=== PATIENT | female | born 1940 | race Caucasian/White ===

== ENCOUNTER → 2016-09-29 | Outpatient (CLI) | payer MEDICARE, OTHER ==
[2016-09-29 13:59] LABS: ABSOLUTE BASOPHILS # (AUTO) 0.1 10^3/uL (0.0-0.2); ABSOLUTE EOSINOPHILS # (AUTO) 0.1 10^3/uL (0.0-0.6); ABSOLUTE LYMPHOCYTES (AUTO) 1.7 10^3/uL (0.5-4.7); ABSOLUTE MONOCYTES (AUTO) 0.7 10^3/uL (0.1-1.4); ABSOLUTE NEUT (AUTO) 4.5 10^3/uL (1.7-8.2); BASOPHILS % (AUTO) 0.8 % (0-2); EOSINOPHILS % (AUTO) 1.6 % (0-6); HEMOGLOBIN 15.3 g/dL (12.0-15.5); HGB HCT DIFFERENCE -0.1; LYMPHOCYTES % (AUTO) 24.1 % (13-45); MEAN CORPUSCULAR HEMOGLOBIN 30.9 pg (27.0-33.4); MEAN CORPUSCULAR HGB CONC 33.3 g/dL (32.0-36.0); MEAN CORPUSCULAR VOLUME 93 fl (80-97); MONOCYTES % (AUTO) 9.3 % (3-13); RED BLOOD COUNT 4.95 10^6/uL (3.72-5.28); RED CELL DISTRIBUTION WIDTH 14.4 % (11.5-14.0); SEGMENTED NEUTROPHILS % (AUTO) 64.2 % (42-78); WHITE BLOOD COUNT 7.1 10^3/uL (4.0-10.5)
== END ==
LOC: OD 12:19
PROVIDERS: ATTEND Nurse Practitioner
DX: J18.9 Pneumonia, unspecified organism (principal); J06.9 Acute upper respiratory infection, unspecified
CPT/HCPCS: 36415; 71020; 85025

== ENCOUNTER → 2016-12-23 | Outpatient (CLI) | payer MEDICARE, OTHER ==
[2016-12-23 09:00] LABS: HEMATOCRIT 44.9 % (36.0-47.0); HEMOGLOBIN 15.4 g/dL (12.0-15.5); HGB HCT DIFFERENCE 1.3; MEAN CORPUSCULAR HEMOGLOBIN 31.7 pg (27.0-33.4); MEAN CORPUSCULAR HGB CONC 34.2 g/dL (32.0-36.0); MEAN CORPUSCULAR VOLUME 93 fl (80-97); RED BLOOD COUNT 4.85 10^6/uL (3.72-5.28); RED CELL DISTRIBUTION WIDTH 14.9 % (11.5-14.0); WHITE BLOOD COUNT 7.6 10^3/uL (4.0-10.5)
[2016-12-23 09:25] LABS: ALANINE AMINOTRANSFERASE 29 U/L (9-52); ALKALINE PHOSPHATASE 129 U/L (38-126); ANION GAP 6 (5-19); ASPARTATE AMINO TRANSFERASE 22 U/L (14-36); BILIRUBIN,DIRECT 0.3 mg/dL (0.0-0.4); BILIRUBIN,TOTAL 0.8 mg/dL (0.2-1.3); BLOOD UREA NITROGEN 15 mg/dL (7-20); CALCIUM 9.7 mg/dL (8.4-10.2); CARBON DIOXIDE 32 mmol/L (22-30); CHLORIDE 106 mmol/L (98-107); CHOLESTEROL 146.45 mg/dL (0-200); CREATININE RESULT 0.89 mg/dL (0.52-1.25); Direct HDL 56 mg/dL (>40); GLUCOSE 97 mg/dL (75-110); POTASSIUM 5.1 mmol/L (3.6-5.0); SODIUM 144.2 mmol/L (137-145); TOTAL PROTEIN 7.2 g/dL (6.3-8.2); TRIGLYCERIDES 97 mg/dL (<150)
[2016-12-23 09:36] LABS: DIRECT LDL 65 mg/dL (<100)
== END ==
LOC: OD 07:39
PROVIDERS: ATTEND Nurse Practitioner
DX: Z79.899 Other long term (current) drug therapy (principal)
CPT/HCPCS: 36415; 80053; 80061; 83036; 84443; 85027

== ENCOUNTER 2017-05-09 19:50 | Inpatient (IN) | payer MEDICARE, OTHER ==
[2017-05-09] MEDS ORDERED: MAG HYDROX/AL HYDROX/SIMETH SUSP 30 ML UDCUP PO ONE (20:22)
[2017-05-09] MEDS ORDERED: LIDOCAINE 2% VISCOUS SOLN 20 ML UDCUP PO ONE (20:23)
--- NOTE | 2017-05-09 20:23 | ER Document Report ---
ED Cardiac - General Chief Complaint: Chest Pain Stated Complaint: CHEST PAIN Time Seen by Provider: 05/09/17 20:16 TRAVEL OUTSIDE OF THE [place] IN LAST 30 DAYS: No - HPI Patient complains to provider of: Chest pain - pt. has h/o GERD but had episode of CP while driving earlier today -- thought it was GERD but when she got home, she took a show but pain did not resolve. Relative called EMS - pt. given ASA and SL nitro with improvement of symptoms - Related Data Allergies/Adverse Reactions: fluticasone propionate [From Flonase] Allergy (Severe, Verified 02/07/14 13:05) Anaphylaxis prednisone [Prednisone] Allergy (Severe, Verified 10/21/13 20:54) Generalized edema Past Medical History - General Information source: Patient, Relative - Social History Smoking Status: Never Smoker Cigarette use (# per day): No Smoking Education Provided: No Family History: Reviewed & Not Pertinent - Past Medical History Cardiac Medical History: Reports: Hx Coronary Artery Disease, Hx Hypercholesterolemia, Hx Hypertension - medicated Denies: Hx Heart Attack Pulmonary Medical History: Reports: Hx Pneumonia Denies: Hx Asthma, Hx Bronchitis, Hx COPD, Hx Tuberculosis Neurological Medical History: Reports: Hx Migraine. Denies: Hx Cerebrovascular Accident, Hx Seizures GI Medical History: Reports: Hx Gastroesophageal Reflux Disease. Denies: Hx Hepatitis, Hx Hiatal Hernia, Hx Ulcer Musculoskeltal Medical History: Reports Hx Arthritis Infectious Medical History: Denies: Hx Hepatitis Past Surgical History: Reports: Hx Abdominal Surgery, Hx Cardiac Surgery - Cath , Hx Cholecystectomy, Hx Hysterectomy, Hx Orthopedic Surgery - left foot. Denies: Hx Mastectomy, Hx Open Heart Surgery, Hx Pacemaker - Immunizations Hx Diphtheria, Pertussis, Tetanus Vaccination: No Hx Pneumococcal Vaccination: 06/06/11 Review of Systems - Review of Systems Constitutional: No symptoms reported Cardiovascular: See HPI, Chest pain Respiratory: No symptoms reported Gastrointestinal: No symptoms reported -: Yes All other systems reviewed and negative Physical Exam - Vital signs Vitals: Pulse Ox 98 05/09/17 20:00 - General General appearance: Appears well In distress: None - Respiratory Respiratory status: No respiratory distress Chest status: Nontender Breath sounds: Normal - Cardiovascular Rhythm: Tachycardia Heart sounds: Normal auscultation - Abdominal Inspection: Normal Distension: No distension - Back Back: Normal - Extremities General upper extremity: Normal inspection General lower extremity: Normal inspection - Neurological Neuro grossly intact: Yes Cognition: Normal Orientation: AAOx4 Course - Re-evaluation Re-evalutation: 05/09/17 21:33 pt feels better after GI cocktail -- pain almost completely resolved -- will call hospitalist for admission - Vital Signs Vital signs: Temp Pulse Resp BP Pulse Ox 14 124/81 98 05/09/17 20:03 05/09/17 20:03 05/09/17 20:55 - Laboratory Result Diagrams: 05/09/17 20:20 05/09/17 20:20 Laboratory results interpreted by me: 05/09/17 05/09/17 20:20 20:20 WBC 11.2 H RDW 15.2 H Plt Count 146 L Potassium 3.4 L Est GFR (Non-Af Amer) 56 L - Diagnostic Test Radiology reviewed: Reports reviewed - copd- neg infiltrate - EKG Interpretation by Me Rate: Normal Rhythm: A.Fib - atrial fib with LAFB but no acute change When compared to previous EKG there are: Changes noted - pt with NSR on ekg Critical Care Note - Critical Care Note Total time excluding time spent on procedures (mins): 30 Discharge - Discharge Clinical Impression: Atrial fibrillation with normal ventricular rate Chest pain Qualifiers: Chest pain type: unspecified Qualified Code(s): R07.9 - Chest pain, unspecified Condition: Stable Disposition: ADMITTED INPATIENT Admitting Provider: Hospitalist Unit Admitted: [facility]
--- NOTE | 2017-05-09 20:26 | RADIOLOGY REPORT (SQ) ---
EXAM DESCRIPTION: CHEST SINGLE VIEW COMPLETED DATE/TIME: 05/09/2017 8:19 pm REASON FOR STUDY: cp COMPARISON: 09/29/2016. NUMBER OF VIEWS: One view. TECHNIQUE: Single frontal radiographic view of the chest acquired. LIMITATIONS: None. FINDINGS: LUNGS AND PLEURA: No opacities, masses or pneumothorax. No pleural effusion. Attenuated bl ood vessels and flattened brian-diaphragms. MEDIASTINUM AND HILAR STRUCTURES: No masses. Contour normal. HEART AND VASCULAR STRUCTURES: Heart normal in size. Normal vasculature. BONES: No acute findings. HARDWARE: None in the chest. OTHER: No other significant finding. IMPRESSION: COPD. NO ACUTE RADIOGRAPHIC FINDING IN THE CHEST. TECHNICAL DOCUMENTATION: JOB ID: [id number] [employer]- All Rights Reserved
[2017-05-09 20:35] LABS: ABSOLUTE BASOPHILS # (AUTO) 0.1 10^3/uL (0.0-0.2); ABSOLUTE EOSINOPHILS # (AUTO) 0.1 10^3/uL (0.0-0.6); ABSOLUTE MONOCYTES (AUTO) 0.8 10^3/uL (0.1-1.4); ABSOLUTE NEUT (AUTO) 7.1 10^3/uL (1.7-8.2); EOSINOPHILS % (AUTO) 1.3 % (0-6); HEMATOCRIT 41.9 % (36.0-47.0); HEMOGLOBIN 14.7 g/dL (12.0-15.5); HGB HCT DIFFERENCE 2.2; LYMPHOCYTES % (AUTO) 26.7 % (13-45); MEAN CORPUSCULAR HEMOGLOBIN 32.2 pg (27.0-33.4); MEAN CORPUSCULAR VOLUME 92 fl (80-97); MONOCYTES % (AUTO) 7.5 % (3-13); RED BLOOD COUNT 4.55 10^6/uL (3.72-5.28); RED CELL DISTRIBUTION WIDTH 15.2 % (11.5-14.0); SEGMENTED NEUTROPHILS % (AUTO) 63.5 % (42-78); WHITE BLOOD COUNT 11.2 10^3/uL (4.0-10.5)
[2017-05-09 20:38] LABS: PROTHROMBIN TIME 12.7 SEC (11.4-15.4)
[2017-05-09 20:58] LABS: ALANINE AMINOTRANSFERASE 25 U/L (9-52); ALBUMIN 3.6 g/dL (3.5-5.0); ALKALINE PHOSPHATASE 125 U/L (38-126); ANION GAP 9 (5-19); ASPARTATE AMINO TRANSFERASE 24 U/L (14-36); BILIRUBIN,DIRECT 0.4 mg/dL (0.0-0.4); BILIRUBIN,TOTAL 0.7 mg/dL (0.2-1.3); BLOOD UREA NITROGEN 16 mg/dL (7-20); CALCIUM 9.5 mg/dL (8.4-10.2); CARBON DIOXIDE 25 mmol/L (22-30); CHLORIDE 105 mmol/L (98-107); CREATINE KINASE 48 U/L (30-135); CREATININE RESULT 0.97 mg/dL (0.52-1.25); GLUCOSE 95 mg/dL (75-110); POTASSIUM 3.4 mmol/L (3.6-5.0); SODIUM 138.9 mmol/L (137-145); TOTAL PROTEIN 6.6 g/dL (6.3-8.2)
[2017-05-09 21:09] LABS: CREATINE KINASE MB 1.18 ng/mL (<4.55); TROPONIN I < 0.012 ng/mL
[2017-05-09] MEDS ORDERED: MAG HYDROX/AL HYDROX/SIMETH SUSP 30 ML UDCUP PO PRN (21:37)
[2017-05-09] MEDS ORDERED: METOPROLOL TARTRATE PF/INJ 5 MG/5 ML SDV IV PRN (21:37)
[2017-05-09] MEDS ORDERED: LANSOPRAZOLE 30 MG TAB.RAP.DR PO ONE (22:41)
[2017-05-09] MEDS ORDERED: METOPROLOL SUCCINATE 25 MG TAB.SR.24H PO SCH (22:45)
--- NOTE | 2017-05-09 22:47 | PDOC CONSULTATION ---
Consultation Consult Date: 05/09/17 Attending physician:: ADELITA JONES Consult reason:: Chest pain and cardiac dysrhythmia History of Present Illness Admission Date/PCP: 05/09/17 21:38 ADELITA JONES MD Patient complains of: Chest pain History of Present Illness: HARJEET OLMOS is a 77 year old female who has h/o GERD but had episode of CP while driving earlier today -- thought it was GERD but when she got home, she took her reflux medicine but pain did not resolve. Relative called EMS - pt. given ASA and SL nitro with improvement of symptoms. Patient claims that she got a GI cocktail in the emergency room and the chest discomfort resolved. Patient was noted to have irregular heartbeat and there is some concern about atrial fibrillation. Patient was therefore admitted for further evaluation and management. Patient describes having had a stress test last August which she said was unremarkable. Patient has significant history of smoking. Patient denied any prior history of myocardial infarction, angina, congestive heart failure, stroke, mini strokes or peripheral vascular disease. Past Medical History Cardiac Medical History: Reports: Hyperlipidema, Hypertension - medicated Denies: Myocardial Infarction Pulmonary Medical History: Reports: Pneumonia Denies: Asthma, Bronchitis, Chronic Obstructive Pulmonary Disease (COPD), Tuberculosis Neurological Medical History: Reports: Migraine Denies: Seizures GI Medical History: Reports: Gastroesophageal Reflux Disease Denies: Hepatitis, Hiatal Hernia Musculoskeltal Medical History: Reports: Arthritis Hematology: Denies: Anemia, Sickle Cell Disease Past Surgical History Past Surgical History: Reports: Cholecystectomy, Hysterectomy, Orthopedic Surgery - left foot Denies: Amputation, Mastectomy, Pacemaker Social History Information Source: Patient Smoking Status: Never Smoker Hx Recreational Drug Use: No Hx Prescription Drug Abuse: No - Advance Directive Resuscitation Status: Full Code Surrogate healthcare decision maker:: Patient's daughter is the surrogate decision-maker Family History Family History: Hypertension Parental Family History Reviewed: Yes Children Family History Reviewed: Yes Sibling(s) Family History Reviewed.: Yes Medication/Allergy Home Medications: Ascorbic Acid [Vitamin C 500 mg Tablet] 500 mg PO DAILY 05/10/17 Aspirin [Aspirin EC] 162 mg PO DAILY 05/10/17 Butalb/Acetaminophen/Caffeine [Fioricet (50-325-40 mg) Tablet] 1 tab PO TIDP PRN 05/10/17 Carboxymethylcellulose Sodium [Refresh Tears] 1 drop OU TIDP PRN 05/10/17 Cyanocobalamin (Vitamin B-12) [Vitamin B-12 1000 Mcg Tablet] 1 tab PO DAILY 12/21 Docusate Sodium [Colace 100 mg Capsule] 100 mg PO TID 05/10/17 Ergocalciferol (Vitamin D2) [Vitamin D2] 50,000 unit PO MO@1000 05/10/17 Famotidine [Pepcid 20 mg Tablet] 20 mg PO QAM 05/10/17 Metoprolol Succinate [Toprol Xl 50 mg Tab.sr] 50 mg PO QHS 05/10/17 Multivitamin [Tab-A-Harjeet] 1 each PO DAILY 05/10/17 Pantoprazole Sodium [Protonix] 40 mg PO QAM 05/10/17 Pravastatin Sodium [Pravachol] 40 mg PO QHS 05/10/17 Valsartan/Hydrochlorothiazide [Diovan Hct 80-12.5 mg Tablet] 1 each PO DAILY 12/21 Allergies/Adverse Reactions: fluticasone propionate [From Flonase] Allergy (Severe, Verified 02/07/14 13:05) Anaphylaxis prednisone [Prednisone] Allergy (Severe, Verified 10/21/13 20:54) Generalized edema Physical Exam Vital Signs: Temp Pulse Resp BP Pulse Ox 16 120/61 93 05/09/17 22:01 05/09/17 22:01 05/09/17 22:01 Results EKG Comments: Twelve-lead EKG shows multifocal atrial tachycardia. Impressions: Chest X-Ray 05/09/17 19:52 IMPRESSION: COPD. NO ACUTE RADIOGRAPHIC FINDING IN THE CHEST. Assessment & Plan - Diagnosis (1) Chest pain Qualifiers: Chest pain type: unspecified Qualified Code(s): R07.9 - Chest pain, unspecified Is this a current diagnosis for this admission?: Yes (2) Tobacco abuse Is this a current diagnosis for this admission?: Yes (3) Cardiac dysrhythmia, unspecified Qualifiers: Arrhythmia type: paroxysmal tachycardia, unspecified Qualified Code(s): I47.9 - Paroxysmal tachycardia, unspecified; I47 - Paroxysmal tachycardia Is this a current diagnosis for this admission?: Yes (4) Hypertension Qualifiers: Hypertension type: essential hypertension Qualified Code(s): I10 - Essential (primary) hypertension Is this a current diagnosis for this admission?: Yes (5) Dyslipidemia Is this a current diagnosis for this admission?: Yes - Notes Notes: Chest pain: Most likely gastroesophageal reflux but cannot rule out cardiac ischemia, acute coronary syndrome etc. At this point agree with admission to the hospital and close observation. Previous stress test reviewed and was relatively unremarkable. Will order a 2D echocardiogram. Tobacco abuse: Patient has been advised to quit smoking. Cardiac dysrhythmia: Patient noted to have mainly paroxysmal atrial tachycardia. Continue metoprolol succinate. Hypertension: Currently stable. Blood pressure goal is 140/90 or less. Dyslipidemia: Continue Pravachol therapy. Patient encouraged to report any further problems. Gastroesophageal reflux disease: Start double dose proton pump inhibitor. - Time Time Spent: 30 to 50 Minutes - CODE STATUS was discussed, patient remains full code. Surrogate decision-maker unchanged. Multiple medical problems were addressed. More than 50% of the time spent coordinating care, discussing management plans with involved caregivers. Management plans discussed with involved personnels. Medical decision making was of moderate to high complexity , patient's has multiple comorbidities. Medications reviewed and adjusted accordingly: Yes
[2017-05-09] MEDS ORDERED: POTASSIUM CHLORIDE 10 MEQ TABLET.SA PO ONE (23:00)
[2017-05-09] MEDS ORDERED: NICOTINE 7 MG/24 HR PATCH.TD24 TD PRN (23:26)
[2017-05-09] MEDS ORDERED: BUTALB/ACETAMINOPHEN/CAFFEINE 1 TAB EACH PO PRN (23:27)
--- NOTE | 2017-05-09 23:38 | EKG REPORT ---
SEVERITY:- ABNORMAL ECG - ATRIAL FIBRILLATION VS PAROXYSMAL ATRIAL TACHYCARDIA LEFT ANTERIOR FASCICULAR BLOCK LVH WITH SECONDARY REPOLARIZATION ABNORMALITY BORDERLINE PROLONGED QT INTERVAL : Confirmed by: Joann León 09-May-2017 23:37:13
[2017-05-10] MEDS ORDERED: METOPROLOL TARTRATE 25 MG TABLET PO ONE (00:10)
[2017-05-10 03:33] LABS: CREATINE KINASE MB 1.13 ng/mL (<4.55); TROPONIN I 0.013 ng/mL
--- NOTE | 2017-05-10 04:24 | PDOC H&P ---
History of Present Illness Admission Date/PCP: 05/09/17 21:38 ADELITA JONES MD Patient complains of: Chest pain History of Present Illness: HARJEET OLMOS is a 77 year old female who has h/o GERD, hiatal hernia, hypertension, 3.5 cm abdominal aortic aneurysm and dyslipidemia. Who had been in her usual state of health until approximately 6 hours prior to presentation with an episode of nonradiating gripping 3 out of 6 retrosternal chest pain lasting approximately 30 minutes while [address] earlier today. The patient believing it was GERD took reflux medication without improvement prompting a call to EMS who administered aspirin and sublingual nitro with improvement of symptoms. In the emergency room she receives a GI cocktail resolving pain. She is also found to have an EKG suggestive of atrial fibrillation versus paroxysmal atrial tachycardia and is referred to the hospitalist for admission. At the time of evaluation the patient is in normal sinus rhythm without complaints. Patient denies any recent URI, [id number] medication, excessive caffeine, change in medications and has otherwise felt well. Patient does have a history of chest pain receiving a Cardiolite stress test 9 months ago which was unremarkable. Past Medical History Cardiac Medical History: Reports: Coronary Artery Disease, Hyperlipidema, Hypertension - medicated, Other - Abdominal aortic aneurysm 3.5 cm on last check Denies: Myocardial Infarction Pulmonary Medical History: Reports: Pneumonia Denies: Asthma, Bronchitis, Chronic Obstructive Pulmonary Disease (COPD), Tuberculosis Neurological Medical History: Reports: Migraine Denies: Seizures GI Medical History: Reports: Gastroesophageal Reflux Disease, Hiatal Hernia Denies: Hepatitis Musculoskeltal Medical History: Reports: Arthritis Psychiatric Medical History: Denies: Depression Hematology: Denies: Anemia, Sickle Cell Disease Past Surgical History Past Surgical History: Reports: Cholecystectomy, Hysterectomy, Orthopedic Surgery - left foot Denies: Amputation, Mastectomy, Pacemaker Social History Information Source: Patient, Emergency Med Personnel, [facility] Records Lives with: Alone Smoking Status: Current Every Day Smoker Cigarettes Packs Per Day: 0.5 Number of Years Smokin Frequency of Alcohol Use: Rare Hx Recreational Drug Use: No Hx Prescription Drug Abuse: No - Advance Directive Resuscitation Status: Full Code Family History Family History: CAD Parental Family History Reviewed: Yes Children Family History Reviewed: Yes Sibling(s) Family History Reviewed.: Yes Medication/Allergy Home Medications: Aspirin [Aspirin 81 mg Chewable Tablet] 162 mg PO QAM 10/21/13 Butalb/Acetaminophen/Caffeine [Fioricet 50-325-40 mg Tablet] 1 - 2 tab PO PRN PRN 10/21/13 Cholecalciferol (Vitamin D3) [Vitamin D3 5000 unit Capsule] 5,000 unit PO QAM Cyanocobalamin (Vitamin B-12) [Vitamin B-12] 1,000 mcg PO QAM 10/21/13 Docusate Sodium [Colace 100 mg Capsule] 100 mg PO BID PRN 10/21/13 Esomeprazole Magnesium [Nexium] 40 mg PO QAM 10/21/13 Famotidine [Pepcid 20 mg Tablet] 20 mg PO BID 10/21/13 Metoprolol Succinate 50 mg PO QHS 10/21/13 Multivitamin [Multi Vitamin Daily] 1 each PO DAILY 10/21/13 Pravastatin Sodium [Pravachol] 40 mg PO QHS 10/21/13 Valsartan/Hydrochlorothiazide [Diovan Hct 80-12.5 mg Tablet] 1 each PO QAM 10/21 Ascorbic Acid [Vitamin C] 1,000 mg DAILY 05/10/17 Allergies/Adverse Reactions: fluticasone propionate [From Flonase] Allergy (Severe, Verified 02/07/14 13:05) Anaphylaxis prednisone [Prednisone] Allergy (Severe, Verified 10/21/13 20:54) Generalized edema Review of Systems Constitutional: ABSENT: chills, fever(s), headache(s), weight gain, weight loss Eyes: ABSENT: visual disturbances Ears: ABSENT: hearing changes Cardiovascular: ABSENT: chest pain, dyspnea on exertion, edema, orthropnea, palpitations Respiratory: ABSENT: cough, hemoptysis Gastrointestinal: ABSENT: abdominal pain, constipation, diarrhea, hematemesis, hematochezia, nausea, vomiting Genitourinary: ABSENT: dysuria, hematuria Musculoskeletal: ABSENT: joint swelling Integumentary: ABSENT: rash, wounds Neurological: ABSENT: abnormal gait, abnormal speech, confusion, dizziness, focal weakness, syncope Psychiatric: ABSENT: anxiety, depression, homidical ideation, suicidal ideation Endocrine: ABSENT: cold intolerance, heat intolerance, polydipsia, polyuria Hematologic/Lymphatic: ABSENT: easy bleeding, easy bruising Physical Exam Vital Signs: Temp Pulse Resp BP Pulse Ox 75 15 122/53 L 94 05/10/17 02:00 05/10/17 00:07 05/10/17 00:51 05/10/17 00:07 Intake & Output 05/08/17 05/09/17 05/10/17 11:59 11:59 11:59 Weight 81.647 kg General appearance: PRESENT: no acute distress, well-developed, well-nourished Head exam: PRESENT: atraumatic, normocephalic Eye exam: PRESENT: conjunctiva pink, EOMI, PERRLA. ABSENT: scleral icterus Ear exam: PRESENT: normal external ear exam Mouth exam: PRESENT: moist, tongue midline Neck exam: ABSENT: carotid bruit, JVD, lymphadenopathy, thyromegaly Respiratory exam: PRESENT: clear to auscultation ara. ABSENT: rales, rhonchi, wheezes Cardiovascular exam: PRESENT: RRR. ABSENT: diastolic murmur, rubs, systolic murmur Pulses: PRESENT: normal dorsalis pedis pul Vascular exam: PRESENT: normal capillary refill GI/Abdominal exam: PRESENT: normal bowel sounds, soft. ABSENT: distended, guarding, mass, organolmegaly, rebound, tenderness Rectal exam: PRESENT: deferred Extremities exam: PRESENT: full ROM. ABSENT: calf tenderness, clubbing, pedal edema Neurological exam: PRESENT: alert, awake, oriented to person, oriented to place , oriented to time, oriented to situation, CN II-XII grossly intact. ABSENT: motor sensory deficit Psychiatric exam: PRESENT: appropriate affect, normal mood. ABSENT: homicidal ideation, suicidal ideation Skin exam: PRESENT: dry, intact, warm. ABSENT: cyanosis, rash Results Laboratory Results: 05/10/17 02:36 CK-MB (CK-2) 1.13 Troponin I 0.013 Impressions: Chest X-Ray 05/09/17 19:52 IMPRESSION: COPD. NO ACUTE RADIOGRAPHIC FINDING IN THE CHEST. Assessment & Plan - Diagnosis (1) Chest pain Qualifiers: Chest pain type: unspecified Qualified Code(s): R07.9 - Chest pain, unspecified Is this a current diagnosis for this admission?: Yes Plan: Likely secondary to GI source given atypical nature and resolution of symptoms with GI cocktail. That said the patient's pain is atypical there are multiple risk factors for coronary artery disease and subsequently will observe and evaluation of acute coronary syndrome versus coronary artery disease with anginal equivalents. Cardiac monitoring blood pressure Q6 hours ,TSH, lipid profile, serial cardiac enzymes and consideration of cardiac stress test (2) Cardiac dysrhythmia, unspecified Qualifiers: Arrhythmia type: paroxysmal tachycardia, unspecified Qualified Code(s): I47.9 - Paroxysmal tachycardia, unspecified; I47 - Paroxysmal tachycardia Is this a current diagnosis for this admission?: Yes Plan: Cardiology consulted diagnosing paroxysmal atrial tachycardia. Will obtain 2D echo, telemetry monitoring and optimization of metoprolol. (3) Dyslipidemia Is this a current diagnosis for this admission?: Yes Plan: Continue statin (4) Hypertension Qualifiers: Hypertension type: essential hypertension Qualified Code(s): I10 - Essential (primary) hypertension Is this a current diagnosis for this admission?: Yes Plan: Hold hydrochlorothiazide for optimization of Lopressor. (5) Tobacco abuse Is this a current diagnosis for this admission?: Yes Plan: Tobacco Dependence patient received tobacco cessation counseling and offered nicotine replacement options (6) Abdominal aortic aneurysm Is this a current diagnosis for this admission?: Yes Plan: Abdominal ultrasound for reevaluation of change. - Time Time Spent: 30 to 50 Minutes
--- NOTE | 2017-05-10 05:32 | RADIOLOGY REPORT (SQ) ---
EXAM DESCRIPTION: U/S ABDOMEN LIMITED W/O DOP COMPLETED DATE/TIME: 05/10/2017 5:18 am REASON FOR STUDY: chest pain w aaa COMPARISON: CT chest 10/24/2013. TECHNIQUE: Grayscale images acquired of the abdomen and recorded on PACS. Additional selected color Doppler and spectral images recorded. LIMITATIONS: Overlying bowel gas. FINDINGS: PANCREAS: Partially obscured by overlying bowel gas. The visualized pancreas in the midli ne is unremarkable. LIVER: Measures 15.5 cm. Increased echogenicity, suggestive of fatty infiltration. Anechoic areas a t the liver are measuring up to 4.4 cm, probably representing cysts. LIVER VASCULATURE: Normal directional flow of the main portal vein and hepatic veins. GALLBLADDER: Surgically absent. ULTRASOUND-DETECTED LEWIS'S SIGN: Not applicable. INTRAHEPATIC DUCTS AND COMMON DUCT: No intrahepatic biliary ductal dilation. The common bile duct is mildly dilated to 9 mm. INFERIOR VENA CAVA: Patent. AORTA: No aneurysm in the visualized proximal and mid segments of the abdominal aorta. The distal ab dominal aorta is dilated to 3.1 x 3.1 x 2.9 cm. RIGHT KIDNEY: Measures 11.9 cm. Normal echogenicity. No hydronephrosis. No calcifications. PERITONEAL AND RIGHT PLEURAL SPACE: No ascites or effusion. IMPRESSION: Fatty infiltration of the liver. Hepatic cysts. Status post cholecystectomy. Mild dilation of the common bile duct. 3.1 cm infrarenal abdominal aortic aneurysm. TECHNICAL DOCUMENTATION: JOB ID: [id number] [employer]- All Rights Reserved
[2017-05-10] MEDS ORDERED: LANSOPRAZOLE 30 MG TAB.RAP.DR PO SCH ×2 (06:00→10:00)
[2017-05-10 06:32] LABS: ABSOLUTE EOSINOPHILS # (AUTO) 0.2 10^3/uL (0.0-0.6); ABSOLUTE LYMPHOCYTES (AUTO) 1.8 10^3/uL (0.5-4.7); ABSOLUTE MONOCYTES (AUTO) 0.5 10^3/uL (0.1-1.4); BASOPHILS % (AUTO) 0.6 % (0-2); EOSINOPHILS % (AUTO) 2.5 % (0-6); HEMOGLOBIN 13.8 g/dL (12.0-15.5); HGB HCT DIFFERENCE 2.4; LYMPHOCYTES % (AUTO) 27.7 % (13-45); MEAN CORPUSCULAR HGB CONC 35.4 g/dL (32.0-36.0); MEAN CORPUSCULAR VOLUME 93 fl (80-97); MONOCYTES % (AUTO) 8.2 % (3-13); RED BLOOD COUNT 4.18 10^6/uL (3.72-5.28); RED CELL DISTRIBUTION WIDTH 14.7 % (11.5-14.0); WHITE BLOOD COUNT 6.5 10^3/uL (4.0-10.5)
[2017-05-10 06:44] LABS: CHOLESTEROL 134.48 mg/dL (0-200); CREATINE KINASE 38 U/L (30-135); Direct HDL 43 mg/dL (>40); TRIGLYCERIDES 119 mg/dL (<150)
[2017-05-10 06:55] LABS: DIRECT LDL 66 mg/dL (<100)
[2017-05-10 09:08] LABS: CREATINE KINASE MB 1.08 ng/mL (<4.55)
[2017-05-10 09:27] LABS: TROPONIN I < 0.012 ng/mL
[2017-05-10] MEDS ORDERED: FAMOTIDINE 20 MG TABLET PO SCH (10:00)
[2017-05-10] MEDS ORDERED: POTASSIUM CHLORIDE 10 MEQ TABLET.SA PO SCH (10:00)
[2017-05-10] MEDS ORDERED: METOPROLOL SUCCINATE 25 MG TAB.SR.24H PO SCH (10:00)
[2017-05-10 11:22] VITALS: BP 131/58
--- NOTE | 2017-05-10 12:54 | EKG REPORT ---
SEVERITY:- ABNORMAL ECG - SINUS RHYTHM LEFT AXIS DEVIATION CONSIDER ANTEROSEPTAL INFARCT : Confirmed by: Milo Valdes MD 10-May-2017 12:54:14
--- NOTE | 2017-05-10 12:56 | PDOC PROGRESS REPORT ---
Subjective Progress Note for:: 05/10/17 Subjective:: Patient seems to be doing better with significant improvement. Patient feels she is ready for discharge. Pt is denying any chest arm or neck discomfort. Patient denying any PND, orthopnea. Patient denied any sustained palpitations, dizziness, syncope, near syncope. Patient denying any fever chills. Patient denying any other significant discomfort. Patient is maintaining sinus rhythm. Previous EKG had shown multifocal atrial tachycardia and paroxysmal atrial tachycardia rather than atrial fibrillation. Review of systems: Rest review of systems negative. Medications: Medications have been reviewed. Physical Exam Vital Signs: Temp Pulse Resp BP Pulse Ox 98.3 F 67 18 131/58 H 93 05/10/17 11:07 05/10/17 11:07 05/10/17 11:07 05/10/17 11:07 05/10/17 11:07 Intake & Output 05/09/17 05/10/17 05/11/17 06:59 06:59 06:59 Intake Total 10 Balance 10 Weight 76.5 kg Exam: GENERAL: well-nourished and in no acute distress. Alert and oriented x3 HEAD: Atraumatic, normocephalic. EYES: Pupils equal round and reactive to light, extraocular movements intact, sclera anicteric, conjunctiva are normal. ENT: TMs normal, nares patent, oropharynx clear without exudates. Moist mucous membranes. No oral ulcerations or bleeding gums noted NECK: supple without lymphadenopathy. Trachea is central. No cervical or axillary lymphadenopathy noted. Carotids are 2+, JVD WNL LUNGS: Respiration seems nonlabored, no significant accessory muscle action noted. Few bibasilar crackles and few bibasilar wheezing noted. No dullness noted. CHEST: Palpation of the chest wall shows no significant chest wall tenderness. No other significant abnormalities noted. HEART: [place] [employer], No PSH, 1/6 AZRA aortic area, 1/6 lopez systolic murmur mitral area, no rubs, no gallops. ABDOMEN: Soft, no significant tenderness appreciated, normoactive bowel sounds. No guarding, no rebound. No rigidity noted . No masses appreciated. EXTREMITIES: Pedal pulses are 1-2+, no calf tenderness noted. No clubbing or cyanosis.trace to 1+ pedal edema noted NEUROLOGICAL: Focused neurological exam showed no significant neurologic deficit. Normal speech, no focal weakness appreciated. PSYCH: Normal mood, normal affect. Judgment and insight within normal limits. SKIN: No significant ecchymosis, rash, ulcerations or signs of pruritus noted. MUSCULOSKELETAL EXAM: No significant joint swelling noted. Results Laboratory Results: 05/10/17 06:13 05/10/17 05/10/17 05/10/17 02:36 06:13 06:13 WBC 6.5 RBC 4.18 Hgb 13.8 Hct 39.0 MCV 93 MCH 33.0 MCHC 35.4 RDW 14.7 H Plt Count 131 L Seg Neutrophils % 61.0 Lymphocytes % 27.7 Monocytes % 8.2 Eosinophils % 2.5 Basophils % 0.6 Absolute Neutrophils 4.0 Absolute Lymphocytes 1.8 Absolute Monocytes 0.5 Absolute Eosinophils 0.2 Absolute Basophils 0.0 Triglycerides 119 Cholesterol 134.48 LDL Cholesterol Direct 66 VLDL Cholesterol 24.0 HDL Cholesterol 43 TSH 4.15 05/10/17 05/10/17 05/10/17 02:36 06:13 08:29 Creatine Kinase 38 CK-MB (CK-2) 1.13 1.08 Troponin I 0.013 < 0.012 Impressions: Chest X-Ray 05/09/17 19:52 IMPRESSION: COPD. NO ACUTE RADIOGRAPHIC FINDING IN THE CHEST. Abdomen Ultrasound 05/10/17 00:00 IMPRESSION: Fatty infiltration of the liver. Hepatic cysts. Status post cholecystectomy. Mild dilation of the common bile duct. 3.1 cm infrarenal abdominal aortic aneurysm. Assessment & Plan - Diagnosis (1) Chest pain Qualifiers: Chest pain type: unspecified Qualified Code(s): R07.9 - Chest pain, unspecified Is this a current diagnosis for this admission?: Yes (2) Tobacco abuse Is this a current diagnosis for this admission?: Yes (3) Cardiac dysrhythmia, unspecified Qualifiers: Arrhythmia type: paroxysmal tachycardia, unspecified Qualified Code(s): I47.9 - Paroxysmal tachycardia, unspecified; I47 - Paroxysmal tachycardia Is this a current diagnosis for this admission?: Yes (4) Hypertension Qualifiers: Hypertension type: essential hypertension Qualified Code(s): I10 - Essential (primary) hypertension Is this a current diagnosis for this admission?: Yes (5) Dyslipidemia Is this a current diagnosis for this admission?: Yes (6) Aneurysm of infrarenal abdominal aorta Is this a current diagnosis for this admission?: Yes (7) COPD (chronic obstructive pulmonary disease) Qualifiers: Emphysema type: unspecified Is this a current diagnosis for this admission?: Yes - Notes Notes: Chest pain: Most likely gastroesophageal reflux. So far cardiac enzymes has been negative. 2D echocardiogram is pending. Patient will benefit from a nuclear stress test to be scheduled as an outpatient. Tobacco abuse: Patient has been advised to quit smoking. Patient seems to have some underlying COPD and possible emphysema. Cardiac dysrhythmia: Patient noted to have mainly paroxysmal atrial tachycardia. Continue metoprolol succinate. Today patient noted to have sinus rhythm. No need for chronic anticoagulation at this time. Hypertension: Currently stable. Blood pressure goal is 140/90 or less. Dyslipidemia: Continue Pravachol therapy. Patient encouraged to report any further problems. Gastroesophageal reflux disease: Start double dose proton pump inhibitor. Infrarenal abdominal aortic aneurysm: Can be followed in my office. COPD: Patient has been advised to quit smoking. Continue inhaled bronchodilators and steroid therapy as necessary. Discharge plans discussed. Patient can follow-up with me. Approximately 40 minutes spent. 2D echo pending at the time of dictation will be reviewed when performed.. - Time Time with patient: Greater than 35 minutes - CODE STATUS was discussed, patient remains full code. Surrogate decision-maker patient's daughter. Multiple medical problems were addressed. More than 50% of the time spent coordinating care, discussing management plans with involved caregivers. Management plans discussed with involved personnels. Medical decision making was of moderate to high complexity, patient's has multiple comorbidities. Medications reviewed and adjusted accordingly: Yes
--- NOTE | 2017-05-10 13:26 | PDOC DISCHARGE SUMMARY ---
General - Admit/Disc Date/PCP Admission Date/Primary Care Provider: 05/09/17 21:38 ADELITA JONES MD Discharge Date: 05/10/17 - Discharge Diagnosis (1) Chest pain Is this a current diagnosis for this admission?: Yes Summary: Ruled out for acute coronary syndrome, most likely GERD (2) COPD (chronic obstructive pulmonary disease) Is this a current diagnosis for this admission?: Yes Summary: Continue inhalers (3) Cardiac dysrhythmia, unspecified Is this a current diagnosis for this admission?: Yes Summary: Paroxymal atrial tachycardia (4) Dyslipidemia Is this a current diagnosis for this admission?: Yes Summary: Continue statin (5) Hypertension Is this a current diagnosis for this admission?: Yes Summary: Continue current medications patient is normotensive (6) Abdominal aortic aneurysm Is this a current diagnosis for this admission?: Yes Summary: Stable at 3.1 cm - Additional Information Resuscitation Status: Full Code Discharge Diet: Regular Discharge Activity: Activity As Tolerated, Balance Activity w/Rest Home Medications: Ascorbic Acid [Vitamin C 500 mg Tablet] 500 mg PO DAILY 05/10/17 Aspirin [Aspirin EC] 162 mg PO DAILY 05/10/17 Butalb/Acetaminophen/Caffeine [Fioricet (50-325-40 mg) Tablet] 1 tab PO TIDP PRN 05/10/17 Carboxymethylcellulose Sodium [Refresh Tears] 1 drop OU TIDP PRN 05/10/17 Cyanocobalamin (Vitamin B-12) [Vitamin B-12 1000 mcg Tablet] 1 tab PO DAILY 12/21 Docusate Sodium [Colace 100 mg Capsule] 100 mg PO TID 05/10/17 Ergocalciferol (Vitamin D2) [Vitamin D2] 50,000 unit PO MO@1000 05/10/17 Famotidine [Pepcid 20 mg Tablet] 20 mg PO QAM 05/10/17 Metoprolol Succinate [Toprol Xl 50 mg Tab.sr] 50 mg PO QHS 05/10/17 Multivitamin [Tab-A-Harjeet] 1 each PO DAILY 05/10/17 Pantoprazole Sodium [Protonix] 40 mg PO QAM 05/10/17 Pravastatin Sodium [Pravachol] 40 mg PO QHS 05/10/17 Valsartan/Hydrochlorothiazide [Diovan Hct 80-12.5 mg Tablet] 1 each PO DAILY 12/21 History of Present Illness Patient complains of: Chest pain and palpitations History of Present Illness: HARJEET OLMOS is a 77 year old female who has h/o GERD, hiatal hernia, hypertension, 3.5 cm abdominal aortic aneurysm and dyslipidemia. Who had been in her usual state of health until approximately 6 hours prior to presentation with an episode of nonradiating gripping 3 out of 6 retrosternal chest pain lasting approximately [address] earlier today. The patient believing it was GERD took reflux medication without improvement prompting a call to EMS who administered aspirin and sublingual nitro with improvement of symptoms. In the emergency room she receives a GI cocktail resolving pain. She is also found to have an EKG suggestive of atrial fibrillation versus paroxysmal atrial tachycardia and is referred to the hospitalist for admission. At the time of evaluation the patient is in normal sinus rhythm without complaints. Patient denies any recent URI, [id number] medication, excessive caffeine, change in medications and has otherwise felt well. Patient does have a history of chest pain receiving a Cardiolite stress test 9 months ago which was unremarkable. Hospital Course Hospital Course: Patient was admitted to the hospitalist service on telemetry. She had serial troponins ordered which were all negative x 3. Dr León, cardiology, saw the patient in consult. He felt her arrythmia was paroxymal atrial tachycardia. Her symptoms were more suggestive of a Gi origin than cardiac. She has had a negative cardiolite stress test which he reviewed and did not feel it needed to be repeated Transthoracic echo was done and read by Dr León. Abdominal ultrasound showed lower AAA to be 3.1 cm in size and stable. Patient was discharged home and will follow up with her primary care provider and Dr León as needed Physical Exam Vital Signs: Temp Pulse Resp BP Pulse Ox 98.3 F 67 18 131/58 H 93 05/10/17 11:07 05/10/17 11:07 05/10/17 11:07 05/10/17 11:07 05/10/17 11:07 Intake & Output 05/09/17 05/10/17 05/11/17 06:59 06:59 06:59 Intake Total 10 Balance 10 Weight 76.5 kg General appearance: PRESENT: no acute distress, well-developed, well-nourished Head exam: PRESENT: atraumatic, normocephalic Eye exam: PRESENT: conjunctiva pink, EOMI, PERRLA. ABSENT: scleral icterus Ear exam: PRESENT: bleeding Mouth exam: PRESENT: moist, tongue midline Neck exam: ABSENT: carotid bruit, JVD, lymphadenopathy, thyromegaly Respiratory exam: PRESENT: clear to auscultation ara. ABSENT: rales, rhonchi, wheezes Cardiovascular exam: PRESENT: RRR. ABSENT: diastolic murmur, rubs, systolic murmur Pulses: PRESENT: normal dorsalis pedis pul Vascular exam: PRESENT: normal capillary refill GI/Abdominal exam: PRESENT: normal bowel sounds, soft. ABSENT: distended, guarding, mass, organolmegaly, rebound, tenderness Rectal exam: PRESENT: deferred Extremities exam: PRESENT: full ROM. ABSENT: calf tenderness, clubbing, pedal edema Neurological exam: PRESENT: alert, awake, oriented to person, oriented to place , oriented to time, oriented to situation, CN II-XII grossly intact. ABSENT: motor sensory deficit Psychiatric exam: PRESENT: appropriate affect, normal mood. ABSENT: homicidal ideation, suicidal ideation Results Laboratory Results: 05/10/17 06:13 05/10/17 05/10/17 05/10/17 02:36 06:13 06:13 WBC 6.5 RBC 4.18 Hgb 13.8 Hct 39.0 MCV 93 MCH 33.0 MCHC 35.4 RDW 14.7 H Plt Count 131 L Seg Neutrophils % 61.0 Lymphocytes % 27.7 Monocytes % 8.2 Eosinophils % 2.5 Basophils % 0.6 Absolute Neutrophils 4.0 Absolute Lymphocytes 1.8 Absolute Monocytes 0.5 Absolute Eosinophils 0.2 Absolute Basophils 0.0 Triglycerides 119 Cholesterol 134.48 LDL Cholesterol Direct 66 VLDL Cholesterol 24.0 HDL Cholesterol 43 TSH 4.15 05/10/17 05/10/17 05/10/17 02:36 06:13 08:29 Creatine Kinase 38 CK-MB (CK-2) 1.13 1.08 Troponin I 0.013 < 0.012 Impressions: Chest X-Ray 05/09/17 19:52 IMPRESSION: COPD. NO ACUTE RADIOGRAPHIC FINDING IN THE CHEST. Abdomen Ultrasound 05/10/17 00:00 IMPRESSION: Fatty infiltration of the liver. Hepatic cysts. Status post cholecystectomy. Mild dilation of the common bile duct. 3.1 cm infrarenal abdominal aortic aneurysm. Qualifiers PATEINT BEING DISCHARGED WITH ANY OF THE FOLLOWING DIAGNOSIS?: No Plan Discharge Plan: Home with family Time Spent: Less than 30 Minutes
--- NOTE | 2017-05-10 13:57 | XCELERA REPORT ---
[address] [address] Transthoracic Echocardiogram Report Name: HARJEET OLMOS Age: 77 yrs Gender: Female : 1940 Patient Status: Inpatient Patient Location: [address] [place] [address] Study Date: 05/10/2017 12:49 PM Height: 64 in Weight: 168 lb BSA: 1.8 m2 Procedure: A complete two-dimensional transthoracic echocardiogram was performed (2D, M-mode, spectral and color flow Doppler). The study was technically difficult with many images being suboptimal in quality. Reason For Study: chest pain Ordering Physician: MARIANO RAMACHANDRAN Performed By: Juan Haney Interpretation Summary The left ventricular ejection fraction is normal. There is mild concentric left ventricular hypertrophy. Doppler measurements suggest pseudonormalized left ventricular relaxation, which is associated with grade II/IV or mild to moderate diastolic dysfunction The left ventricle is grossly normal size. Wall motion cannot be accurately commented on, but no definite regional wall motion abnormalities noted. The right ventricle is mildly dilated. The right ventricle appears to be hypertrophied The right ventricular systolic function is normal. The left atrium is mildly dilated. The right atrium is mildly dilated. There is a trace to mild amount of mitral regurgitation There is no mitral valve stenosis. There is no aortic valve stenosis No aortic regurgitation is present. There is a trace to mild amount of tricuspid regurgitation There is moderate to severe pulmonary hypertension by echo Right ventricular systolic pressure is estimated to be elevated at 50- 60mmHg. The aortic root is not well visualized but is probably normal size. The inferior vena cava appeared normal and decreased > 50% with respiration (RAP 5-10 mmHg) Minimal pericardial effusion. MMode/2D Measurements & Calculations RVDd: 2.1 cm LVIDd: 4.5 cm FS: 39.1 % Ao root diam: 3.0 cm IVSd: 1.1 cm LVIDs: 2.8 cm EDV(Teich): 94.4 ml LVPWd: 1.1 cm ESV(Teich): 28.6 ml Ao root area: 6.8 cm2 EF(Teich): 69.7 % LA dimension: 3.3 cm Doppler Measurements & Calculations MV E max any: MV P1/2t max any: Ao V2 max: LV V1 max P.9 cm/sec 91.6 cm/sec 103.2 cm/sec 4.6 mmHg MV A max any: MV P1/2t: 47.7 msec Ao max PG: LV V1 max: 114.1 cm/sec 4.3 mmHg 107.4 cm/sec MV E/A: 0.79 MVA(P1/2t): 4.6 cm2 MV dec slope: 562.0 cm/sec2 PA V2 max: TR max any: RAP systole: 77.0 cm/sec 335.9 cm/sec 10.0 mmHg PA max P.4 mmHgTR max P.2 mmHg RVSP(TR): 55.2 mmHg Left Ventricle The left ventricle is grossly normal size. There is mild concentric left ventricular hypertrophy. The left ventricular ejection fraction is normal. Doppler measurements suggest pseudonormalized left ventricular relaxation, which is associated with grade II/IV or mild to moderate diastolic dysfunction. Wall motion cannot be accurately commented on, but no definite regional wall motion abnormalities noted. Right Ventricle The right ventricle is mildly dilated. The right ventricle appears to be hypertrophied. The right ventricular systolic function is normal. Atria The right atrium is mildly dilated. The left atrium is mildly dilated. Interarterial septum not well visualized and not well dopplered. Cannot comment on ASD/PFO presence. Mitral Valve The mitral valve is grossly normal. There is no mitral valve stenosis. There is a trace to mild amount of mitral regurgitation. Aortic Valve The aortic valve is not well visualized secondary to technical limitations. There is no aortic valve stenosis. No aortic regurgitation is present. Tricuspid Valve The tricuspid valve is not well visualized, but is grossly normal. There is no tricuspid stenosis. There is a trace to mild amount of tricuspid regurgitation. There is moderate to severe pulmonary hypertension by echo. Right ventricular systolic pressure is estimated to be elevated at 50- 60mmHg. Pulmonic Valve The pulmonic valve is not well visualized. Great Vessels The aortic root is not well visualized but is probably normal size. The inferior vena cava appeared normal and decreased > 50% with respiration (RAP 5-10 mmHg). Effusions Minimal pericardial effusion. : MARIANO RAMACHANDRAN > Joann León
== END 2017-05-10 14:05 | disposition home or self-care (01) | DRG 392 ==
LOC: ER 19:50 → EH 21:38 → UNDOADMIN 21:47 → EH 21:47 → 3N 05-10 00:32
PROVIDERS: ADMIT Internal Medicine; ATTEND Internal Medicine
DX: K21.9 Gastro-esophageal reflux disease without esophagitis (principal); I47.9 Paroxysmal tachycardia, unspecified; K44.9 Diaphragmatic hernia without obstruction or gangrene; R07.9 Chest pain, unspecified; I71.4 Abdominal aortic aneurysm, without rupture; I25.10 Atherosclerotic heart disease of native coronary artery without angina pectoris; I10 Essential (primary) hypertension; J44.9 Chronic obstructive pulmonary disease, unspecified; E78.00 Pure hypercholesterolemia, unspecified; M19.90 Unspecified osteoarthritis, unspecified site; F17.210 Nicotine dependence, cigarettes, uncomplicated; Z79.82 Long term (current) use of aspirin; Z79.899 Other long term (current) drug therapy; Z88.8 Allergy status to other drugs, medicaments and biological substances
CPT/HCPCS: 36415; 71010; 76705; 80053; 80061; 82550; 82553; 83036; 83735; 84443; 84484; 85025; 85610; 93005; 93010; 93306; 99291; J3490

== ENCOUNTER 2017-12-28 10:41 | Emergency (ER) | payer MEDICARE, OTHER ==
--- NOTE | 2017-12-28 12:02 | ER Document Report ---
HPI - HPI Pain Level: 4 Context: 77-year-old female complaining of left lower lumbar pain that radiates into the hip and into the anterior thigh and the knee for 2 weeks. It started Wednesday a week ago when she tried to kneel down during the mass. She has seen her medical provider Natasha Khan and the x-ray showed some degenerative changes. She has an orthopedic appointment on . She took hydrocodone once on Wednesday it made her too nauseated she has not taken any since and the pain is 5 /5 at this time. Associated Symptoms: None - CONSTITUTIONAL Constitutional: DENIES: Fever, Chills - EENT EENT: DENIES: Sore Throat, Ear Pain, Eye problems - NEURO Neurology: REPORTS: Weakness - general. DENIES: Headache, Vision blurred, Dizzinesss / Vertigo - CARDIOVASCULAR Cardiovascular: DENIES: Chest pain - RESPIRATORY Respiratory: DENIES: Trouble Breathing, Coughing - GASTROINTESTINAL Gastrointestinal: DENIES: Abdominal Pain, Black / Bloody Stools - URINARY Urinary: REPORTS: Frequency. DENIES: Dysuria, Urgency - REPRODUCTIVE Reproductive: DENIES: : - MUSCULOSKELETAL Musculoskeletal: DENIES: Extremity pain Past Medical History - General Information source: Patient - Social History Smoking Status: Current Some Day Smoker Frequency of alcohol use: None Drug Abuse: None Lives with: Alone - Children live near her Family History: Hypertension Patient has suicidal ideation: No Patient has homicidal ideation: No - Past Medical History Cardiac Medical History: Reports: Hx Coronary Artery Disease, Hx Hypercholesterolemia, Hx Hypertension - medicated Pulmonary Medical History: Reports: Hx Pneumonia Neurological Medical History: Reports: Hx Migraine Renal/ Medical History: Denies: Hx Peritoneal Dialysis GI Medical History: Reports: Hx Gastroesophageal Reflux Disease Musculoskeltal Medical History: Reports Hx Arthritis Past Surgical History: Reports: Hx Abdominal Surgery, Hx Cardiac Catheterization , Hx Cardiac Surgery - Cath, Hx Cholecystectomy, Hx Hysterectomy, Hx Orthopedic Surgery - left foot - Immunizations Hx Diphtheria, Pertussis, Tetanus Vaccination: No Hx Pneumococcal Vaccination: 06/06/11 Vertical Provider Document - CONSTITUTIONAL Agree With Documented VS: Yes Exam Limitations: No Limitations General Appearance: No Apparent Distress - INFECTION CONTROL TRAVEL OUTSIDE OF THE [place] IN LAST 30 DAYS: No - HEENT HEENT: Normocephalic, PERRLA - NECK Neck: Supple. negative: Lymphadenopathy-Left, Lymphadenopathy-Right - RESPIRATORY Respiratory: Breath Sounds Normal, No Respiratory Distress - CARDIOVASCULAR Cardiovascular: Regular Rate, Regular Rhythm - GI/ABDOMEN Gastrointestinal: Abdomen Soft, Abdomen Non-Tender - BACK Back: Normal Inspection - MUSCULOSKELETAL/EXTREMETIES Musculoskeletal/Extremeties: MAEW, Tender - left lumbar sacral muscles tender - NEURO Motor/Sensory: No Motor Deficit, No Sensory Deficit Deep Tendon Reflexes: 2+ - ara ankle and patellar - DERM Integumentary: Warm, Dry, No Rash Course - Re-evaluation Re-evalutation: 12/28/17 13:45 Pain level is down to 2.5/5 and she is able to move better. 12/28/17 13:46 Explained to the patient not to take the hydrocodone 7.5 that was not helping and caused her to be nauseated. - Vital Signs Vital signs: Temp Pulse Resp BP Pulse Ox 64 24 H 139/60 H 97 12/28/17 10:53 12/28/17 10:53 12/28/17 10:53 12/28/17 10:53 Discharge - Discharge Clinical Impression: Left low back pain Qualifiers: Chronicity: acute Sciatica presence: with sciatica Sciatica laterality: sciatica of left side Qualified Code(s): M54.42 - Lumbago with sciatica, left side Condition: Good Disposition: HOME, SELF-CARE Instructions: Antinausea Medication ([facility]), Low Back Pain ([facility]), Oral Narcotic Medication ([facility]), Warm Packs ([facility]) Additional Instructions: warm compress The orthopedist on as planned Take the pain medication with a nausea medication Return to the emergency room if any worsening of the symptoms Prescriptions: Ondansetron [Zofran Odt] 4 mg PO Q4HP PRN #30 tab.rapdis PRN Reason: Oxycodone HCl/Acetaminophen [Percocet 10-325 Mg Tablet] 1 each PO Q4HP PRN #20 tablet PRN Reason:
[2017-12-28] MEDS ORDERED: ONDANSETRON 4 MG TAB.RAPDIS PO ONE (12:48)
[2017-12-28] MEDS ORDERED: HYDROMORPHONE HCL INJ/PF 2 MG/ML AMPULE IM ONE (12:48)
[2017-12-28 14:13] VITALS: BP 146/61
== END 2017-12-28 14:15 | disposition home or self-care (01) ==
LOC: ER 10:41
DX: M54.42 Lumbago with sciatica, left side (principal); R53.1 Weakness; F17.200 Nicotine dependence, unspecified, uncomplicated; I25.10 Atherosclerotic heart disease of native coronary artery without angina pectoris; E78.00 Pure hypercholesterolemia, unspecified; I10 Essential (primary) hypertension; Z90.49 Acquired absence of other specified parts of digestive tract; Z90.710 Acquired absence of both cervix and uterus
CPT/HCPCS: 99283; 96372; A9270; J1170; S0119

== ENCOUNTER → 2018-03-31 | Outpatient (CLI) | payer MEDICARE, OTHER ==
[2018-03-31 12:24] LABS: ALANINE AMINOTRANSFERASE 20 U/L (9-52); ALBUMIN 3.7 g/dL (3.5-5.0); ALKALINE PHOSPHATASE 123 U/L (38-126); ANION GAP 11 (5-19); ASPARTATE AMINO TRANSFERASE 24 U/L (14-36); BILIRUBIN,DIRECT 0.4 mg/dL (0.0-0.4); BILIRUBIN,TOTAL 0.9 mg/dL (0.2-1.3); BLOOD UREA NITROGEN 12 mg/dL (7-20); CALCIUM 9.1 mg/dL (8.4-10.2); CARBON DIOXIDE 22 mmol/L (22-30); CHLORIDE 108 mmol/L (98-107); GLUCOSE 134 mg/dL (75-110); SODIUM 141.2 mmol/L (137-145)
[2018-04-01 09:58] LABS: ABSOLUTE BASOPHILS # (AUTO) 0.1 10^3/uL (0.0-0.2); ABSOLUTE EOSINOPHILS # (AUTO) 0.1 10^3/uL (0.0-0.6); ABSOLUTE LYMPHOCYTES (AUTO) 1.7 10^3/uL (0.5-4.7); ABSOLUTE MONOCYTES (AUTO) 0.8 10^3/uL (0.1-1.4); ABSOLUTE NEUT (AUTO) 5.4 10^3/uL (1.7-8.2); BASOPHILS % (AUTO) 0.9 % (0-2); EOSINOPHILS % (AUTO) 1.8 % (0-6); HEMATOCRIT 43.7 % (36.0-47.0); HEMOGLOBIN 15.1 g/dL (12.0-15.5); LYMPHOCYTES % (AUTO) 20.5 % (13-45); MEAN CORPUSCULAR HEMOGLOBIN 31.2 pg (27.0-33.4); MEAN CORPUSCULAR HGB CONC 34.6 g/dL (32.0-36.0); MEAN CORPUSCULAR VOLUME 90 fl (80-97); MONOCYTES % (AUTO) 10.4 % (3-13); PLATELET COUNT 169 10^3/uL (150-450); RED BLOOD COUNT 4.85 10^6/uL (3.72-5.28); RED CELL DISTRIBUTION WIDTH 14.7 % (11.5-14.0); SEGMENTED NEUTROPHILS % (AUTO) 66.4 % (42-78); TOTAL CELLS COUNTED % (AUTO) 100 %; WHITE BLOOD COUNT 8.1 10^3/uL (4.0-10.5)
== END ==
LOC: OD 11:10
PROVIDERS: ATTEND Dermatology
DX: B35.1 Tinea unguium (principal); Z79.899 Other long term (current) drug therapy
CPT/HCPCS: 36415; 80053; 85025

== ENCOUNTER 2018-07-12 09:55 | Day surgery (SDC) | payer MEDICARE, OTHER ==
[~2018-07-12 09:55] MED LIST: KETOROLAC TROMETHAMINE 0.45% 4 DROP/0.4 ML DROPERETTE OS PRN; LIDOCAINE 1%/PHENYLEPHRINE 1.5% 1 ML VIAL ONE; MIDAZOLAM 2 MG/2 ML INJ ONE
[2018-07-12] MEDS: CYCLOPENTOLATE 0.2%/PHENYLEPHRINE 1% OPH SOLN 2 ML OS PRN ×3 (11:15→11:35)
[2018-07-12] MEDS: TROPICAMIDE 1% OPH SOLN 3 ML OS PRN ×3 (11:15→11:35)
[2018-07-12] MEDS: BESIFLOXACIN HCL 0.6% OPH SUSP 5 ML BOTTLE OS PRN ×4 (11:15→12:16)
[2018-07-12] MEDS: TETRACAINE HCL 0.5% OPH SOLN 0.6 ML DROPERETTE OS PRN ×2 (11:15→11:45)
[2018-07-12] MEDS: LIDOCAINE 4% INJ/PF (40 MG/ML) 5 ML AMPUL OS PRN ×2 (11:52)
[2018-07-12] MEDS: BUPIVACAINE HCL 0.75% INJ/PF (7.5 MG/1 ML) 10 ML SDV OS PRN ×2 (11:52)
[2018-07-12] MEDS: CHONDR SU A NA/HYALUR INTRAOC KIT (SURGICARE) ONE ×2 (12:00)
[2018-07-12] MEDS: EPINEPHRINE INJ/PF 1 MG/1 ML AMPULE ONE ×2 (12:00)
[2018-07-12] MEDS: LIDOCAINE 1% INJ-PF (10 MG/ML) 30 ML SDV ONE ×2 (12:04)
--- NOTE | 2018-07-12 22:34 | [facility] OPERATIVE REPORT E ---
[facility] Operative Report NAME: HARJEET OLMOS AGE: 78Y DATE OF SURGERY: 07/12/2018 ROOM: PREOPERATIVE DIAGNOSES: 1. CATARACT LEFT EYE. 2. PUPIL MIOSIS LEFT EYE. POSTOPERATIVE DIAGNOSES: 1. CATARACT LEFT EYE. 2. PUPIL MIOSIS LEFT EYE. PROCEDURE PERFORMED: Complex cataract extraction with intraocular lens implant left eye. SURGEON: CONSUELO SOARES M.D. ANESTHESIA: Topical with MAC. INDICATIONS FOR SURGERY: Difficulty reading road signs. Indications for complex; poor pupil dilation requiring the use of a Malyugin ring. PROCEDURE: The patient was brought to the operating room and placed on the operating table. Topical anesthesia was administered. This consisted of instrument wipe pledgets soaked in a solution of 4% Xylocaine mixed with 0.75% Marcaine in a 1:2 ratio. A 2 x 1 cm pledget was placed in the superior fornix. A 1 x 1 cm pledget was placed in the inferior fornix. The eye was patched shut for 5 minutes. The patch and pledgets were removed. The eye was sterilely prepped and draped in the usual manner. A lid speculum was placed in the eye. A 4-0 black silk suture was placed around the superior and inferior rectus muscles to use as traction. A conjunctival peritomy was made at the 10 o'clock position. Hemostasis was attained with bipolar cautery. A posterior limbal groove was created using a crescent knife and dissected anteriorly towards the cornea. A sharp point blade was used to create a paracentesis site at the 2 o'clock position. A 2.4 mm keratome was used to enter the anterior chamber through the groove. Then 0.5 mL of 1% nonpreserved lidocaine was injected into the anterior chamber. Viscoelastic was injected into the anterior chamber. Pupil dilation was approximately 4.5 mm. A Malyugin Ring was placed stabilizing the iris. An anterior capsulotomy was performed using Utrata forceps in a capsulorrhexis fashion. Hydrodissection and hydrodelineation were performed. Phacoemulsification was performed in a [id number] technique. Total phaco time 5.07 CDE, Following this, the I/A unit was used to remove residual cortex. Viscoelastic was injected into the capsular bag. Intraocular lens model [id number] 22.5 diopters, serial number [id number] was placed in the capsular bag. The Malyugin ring haptics were removed and the ring was removed from the eye. The I/A unit was used to remove residual viscoelastic. The wound was seen to be watertight under high and low pressure and no sutures were placed. The 4-0 black silk sutures and lid speculum were removed. The eye was shielded after Besivance drops were placed. The patient tolerated the procedure well and was sent to the recovery room in good condition. One drop of Cosopt was placed in the eye at the end of surgery. DICTATING PHYSICIAN: CONSUELO SOARES M.D. [id number] PHY#: [id number] ID: [id number] JOB#: [id number] ACCT: [id number] cc:CONSUELO SOARES M.D. >
--- NOTE | 2018-07-12 22:41 | [facility] DISCHARGE SUMMARY E ---
[facility] Discharge Summary NAME: HARJEET OLMOS AGE: 78Y ADMITTED: 07/12/2018 DISCHARGED: 07/12/2018 PREOPERATIVE DIAGNOSES: 1. CATARACT LEFT EYE. 2. PUPIL MIOSIS LEFT EYE. POSTOPERATIVE DIAGNOSES: 1. CATARACT LEFT EYE. 2. PUPIL MIOSIS LEFT EYE. PROCEDURE PERFORMED: Complex cataract extraction with intraocular lens implant left eye. HOSPITAL COURSE: The patient is a 78-year-old lady who underwent uneventful complex cataract extraction with intraocular lens implant left eye on 07/12/18. She will be discharged to home. She is instructed to resume preoperative medications, take Tylenol as needed for discomfort. To use Lotemax, PROLENSA, and Besivance at 3 p.m. and 8 p.m. To keep her eyes shielded and follow up in my office in 1 day. DICTATING PHYSICIAN: CONSUELO SOARES M.D. [id number] PHY#: [id number] ID: [id number] JOB#: [id number] ACCT: [id number] cc:CONSUELO SOARES M.D. >
== END 2018-07-12 12:57 | disposition home or self-care (01) ==
LOC: SC 09:55
PROVIDERS: ATTEND Ophthalmology
DX: H25.812 Combined forms of age-related cataract, left eye (principal); H57.03 Miosis; I10 Essential (primary) hypertension; K21.9 Gastro-esophageal reflux disease without esophagitis; F17.210 Nicotine dependence, cigarettes, uncomplicated; Z79.899 Other long term (current) drug therapy; Z88.8 Allergy status to other drugs, medicaments and biological substances; Z79.82 Long term (current) use of aspirin
CPT/HCPCS: 66982; V2632; J2250; J3490 ×3; A9270; J0171; J2370; 142

== ENCOUNTER → 2019-08-02 | Outpatient (CLI) | payer MEDICARE, OTHER ==
[2019-08-02 11:44] LABS: ABSOLUTE BASOPHILS # (AUTO) 0.1 10^3/uL (0.0-0.2); ABSOLUTE EOSINOPHILS # (AUTO) 0.1 10^3/uL (0.0-0.6); ABSOLUTE MONOCYTES (AUTO) 0.7 10^3/uL (0.1-1.4); ABSOLUTE NEUT (AUTO) 4.9 10^3/uL (1.7-8.2); BASOPHILS % (AUTO) 0.8 % (0-2); EOSINOPHILS % (AUTO) 1.9 % (0-6); HEMATOCRIT 44.5 % (36.0-47.0); HEMOGLOBIN 15.1 g/dL (12.0-15.5); LYMPHOCYTES % (AUTO) 25.7 % (13-45); MEAN CORPUSCULAR HEMOGLOBIN 30.3 pg (27.0-33.4); MEAN CORPUSCULAR HGB CONC 33.9 g/dL (32.0-36.0); MEAN CORPUSCULAR VOLUME 89 fl (80-97); MONOCYTES % (AUTO) 8.5 % (3-13); PLATELET COUNT 193 10^3/uL (150-450); RED BLOOD COUNT 4.99 10^6/uL (3.72-5.28); RED CELL DISTRIBUTION WIDTH 15.2 % (11.5-14.0); SEGMENTED NEUTROPHILS % (AUTO) 63.1 % (42-78); TOTAL CELLS COUNTED % (AUTO) 100 %; WHITE BLOOD COUNT 7.7 10^3/uL (4.0-10.5)
[2019-08-02 11:51] LABS: INTERNATIONAL RATION (INR) 0.95; PROTHROMBIN TIME 12.7 SEC (11.4-15.4)
[2019-08-02 12:18] LABS: ANION GAP 8 (5-19); BLOOD UREA NITROGEN 14 mg/dL (7-20); CALCIUM 9.6 mg/dL (8.4-10.2); CARBON DIOXIDE 30 mmol/L (22-30); CHLORIDE 101 mmol/L (98-107); GLUCOSE 81 mg/dL (75-110)
== END ==
LOC: OD 10:49
PROVIDERS: ATTEND Physician Assistant
DX: R07.89 Other chest pain (principal)
CPT/HCPCS: 36415; 80048; 83735; 85025; 85610

== ENCOUNTER 2020-07-07 12:32 | Emergency (ER) | payer MEDICARE, OTHER ==
[2020-07-07] MEDS ORDERED: HYDROCODONE/ACETAMINOPHEN 5-325 MG TABLET PO ONE (13:30)
--- NOTE | 2020-07-07 13:30 | ER Document Report ---
ED Medical Screen (RME) - General Chief Complaint: Shoulder Pain Stated Complaint: FALL - LEFT SHOULDER PAIN Time Seen by Provider: 07/07/20 13:18 Primary Care Provider: JUDI HOWELL PA-C [Primary Care Provider] - Follow up as needed Mode of Arrival: Wheelchair Information source: Patient Notes: 80-year-old female presented to ED for fall at 1 AM in the morning. When daughter found her her arm was extended up the wall and she was laying flat on the ground. Daughter states patient refused to come to the emergency room last night but now her pain is considerably worse so she came to the emergency room. She does have pain with any movement to the left shoulder elbow wrist. It is very painful to get up and down from a chair. She does have tenderness to the front and back of the left side of the ribs. Lungs are clear at this time. We will get x-rays of the left shoulder humerus forearm hand and ribs and she will be seen by another provider. I have greeted and performed a rapid initial assessment of this patient. A comprehensive ED assessment and evaluation of the patient, analysis of test results and completion of medical decision making process will be conducted by an additional ED providers. TRAVEL OUTSIDE OF THE [place] IN LAST 30 DAYS: No - Related Data Allergies/Adverse Reactions: fluticasone propionate [From Flonase] Allergy (Severe, Verified 06/15/18 14:54) Anaphylaxis prednisone [Prednisone] Allergy (Severe, Verified 06/15/18 14:54) Generalized edema Past Medical History - Past Medical History Cardiac Medical History: Reports: Hx Coronary Artery Disease, Hx Hypercholesterolemia, Hx Hypertension - medicated Denies: Hx Heart Attack Pulmonary Medical History: Reports: Hx Pneumonia Denies: Hx Asthma, Hx Bronchitis, Hx COPD, Hx Tuberculosis Neurological Medical History: Reports: Hx Migraine. Denies: Hx Cerebrovascular Accident, Hx Seizures Renal/ Medical History: Denies: Hx Peritoneal Dialysis GI Medical History: Reports: Hx Gastroesophageal Reflux Disease. Denies: Hx Hepatitis, Hx Hiatal Hernia, Hx Ulcer Musculoskeltal Medical History: Reports Hx Arthritis Psychiatric Medical History: Denies: Hx Depression Infectious Medical History: Denies: Hx Hepatitis Past Surgical History: Reports: Hx Abdominal Surgery, Hx Cardiac Catheterization, Hx Cardiac Surgery - Cath, Hx Cholecystectomy, Hx Hysterectomy, Hx Orthopedic Surgery - left foot. Denies: Hx Mastectomy, Hx Open Heart Surgery, Hx Pacemaker - Immunizations Hx Diphtheria, Pertussis, Tetanus Vaccination: No Physical Exam - Vital signs Vitals: Temp Pulse Resp BP Pulse Ox 98.3 F 58 L 20 162/66 H 93 07/07/20 13:19 07/07/20 13:19 07/07/20 13:19 07/07/20 13:19 07/07/20 13:19 Course - Vital Signs Vital signs: Temp Pulse Resp BP Pulse Ox 98.3 F 58 L 20 162/66 H 93 07/07/20 13:19 07/07/20 13:19 07/07/20 13:19 07/07/20 13:19 07/07/20 13:19 Doctor's Discharge - Discharge Referrals: JUDI HOWELL, RAFAEL [Primary Care Provider] - Follow up as needed
--- NOTE | 2020-07-07 15:17 | RADIOLOGY REPORT (SQ) ---
EXAM DESCRIPTION: FOREARM LEFT COMPLETED DATE/TIME: 07/07/2020 2:49 pm REASON FOR STUDY: Fall while trying to get ready bed last night COMPARISON: None. NUMBER OF VIEWS: Two views. TECHNIQUE: Two radiographic images acquired of the left forearm, including elbow and wrist in at [address] one projection. LIMITATIONS: None. FINDINGS: MINERALIZATION: Normal. BONES: No acute fracture. No worrisome bone lesions. SOFT TISSUES: No obvious swelling or foreign body. OTHER: No other significant finding. IMPRESSION: NEGATIVE STUDY OF THE LEFT FOREARM. NO RADIOGRAPHIC EVIDENCE OF ACUTE INJURY. TECHNICAL DOCUMENTATION: JOB ID: [id number] 2010 [employer]- All Rights Reserved Reading location - IP/workstation name: [email or web address]
--- NOTE | 2020-07-07 15:17 | RADIOLOGY REPORT (SQ) ---
EXAM DESCRIPTION: HAND LEFT 3 VIEWS IMAGES COMPLETED DATE/TIME: 07/07/2020 2:49 pm REASON FOR STUDY: Fall while trying to get ready bed last night COMPARISON: None. EXAM PARAMETERS: NUMBER OF VIEWS: Three views. TECHNIQUE: AP, lateral and oblique radiographic images acquired of the left hand. LIMITATIONS: None. FINDINGS: MINERALIZATION: Normal. BONES: No acute fracture or dislocation. No worrisome bone lesions. JOINTS: No effusions. SOFT TISSUES: No soft tissue swelling. No foreign body. OTHER: No other significant finding. IMPRESSION: NEGATIVE STUDY OF THE LEFT HAND. NO RADIOGRAPHIC EVIDENCE OF ACUTE INJURY. TECHNICAL DOCUMENTATION: JOB ID: [id number] 2010 [employer]- All Rights Reserved Reading location - IP/workstation name: [email or web address]
--- NOTE | 2020-07-07 15:18 | RADIOLOGY REPORT (SQ) ---
EXAM DESCRIPTION: HUMERUS LEFT IMAGES COMPLETED DATE/TIME: 07/07/2020 2:49 pm REASON FOR STUDY: Fall while trying to get ready bed last night COMPARISON: None. NUMBER OF VIEWS: Two views. TECHNIQUE: Two radiographic images were acquired of the left humerus to include elbow and shoulder i n at least one projection. LIMITATIONS: None. FINDINGS: MINERALIZATION: Normal. BONES: No acute fracture or dislocation. No worrisome bone lesions. SOFT TISSUES: No obvious swelling or foreign body. OTHER: No other significant finding. IMPRESSION: NEGATIVE STUDY OF THE LEFT HUMERUS. NO RADIOGRAPHIC EVIDENCE OF ACUTE INJURY. TECHNICAL DOCUMENTATION: JOB ID: [id number] 2010 [employer]- All Rights Reserved Reading location - IP/workstation name: [email or web address]
--- NOTE | 2020-07-07 15:19 | RADIOLOGY REPORT (SQ) ---
EXAM DESCRIPTION: RIBS LEFT W/PA CHEST IMAGES COMPLETED DATE/TIME: 07/07/2020 2:49 pm REASON FOR STUDY: Fall while trying to get ready bed last night COMPARISON: 01/14/2016 TECHNIQUE: Frontal view of the chest and additional views of the left ribs acquired. NUMBER OF VIEWS: Three view. LIMITATIONS: None. FINDINGS: FRONTAL CXR: No pneumothorax. No pleural effusion. No atelectasis or infiltrates. RIBS: No displaced rib fractures. No lytic or blastic bony lesions. OTHER: No other significant finding. IMPRESSION: NO PNEUMOTHORAX. NO DISPLACED RIB FRACTURES. COMMENT: SITE OF TRAUMA/COMPLAINT MARKED/STAMP COMPLETED: NOT APPLICABLE. TECHNICAL DOCUMENTATION: JOB ID: [id number] 2010 [employer]- All Rights Reserved Reading location - IP/workstation name: [email or web address]
--- NOTE | 2020-07-07 15:19 | RADIOLOGY REPORT (SQ) ---
EXAM DESCRIPTION: SHOULDER LEFT 2 OR MORE VIEWS IMAGES COMPLETED DATE/TIME: 07/07/2020 2:49 pm REASON FOR STUDY: Fall while trying to get ready bed last night COMPARISON: None. NUMBER OF VIEWS: Three views. TECHNIQUE: Internal rotation, external rotation, and Y view images acquired of the left shoulder. LIMITATIONS: None. FINDINGS: MINERALIZATION: Normal. BONES: No acute fracture. No worrisome bone lesions. JOINTS: No dislocation. VISUALIZED LUNGS AND RIBS: No pneumothorax. No rib fracture. SOFT TISSUES: No radiopaque foreign body. OTHER: No other significant finding. IMPRESSION: NEGATIVE STUDY OF THE LEFT SHOULDER. NO RADIOGRAPHIC EVIDENCE OF ACUTE INJURY. TECHNICAL DOCUMENTATION: JOB ID: [id number] 2010 [employer]- All Rights Reserved Reading location - IP/workstation name: [email or web address]
[2020-07-07] MEDS ORDERED: MORPHINE SULFATE 10 MG/ML INJ IM ONE (16:26)
[2020-07-07] MEDS ORDERED: ONDANSETRON HCL INJ/PF 4 MG/2 ML SDV IM ONE (16:26)
--- NOTE | 2020-07-07 16:35 | ER Document Report ---
ED Fall - General Chief Complaint: Fall Stated Complaint: FALL - LEFT SHOULDER PAIN Time Seen by Provider: 07/07/20 13:18 Primary Care Provider: JUDI HOWELL PA-C [PHYSICIAN CONSTRUCTION SCHEDULER] - Follow up as needed Mode of Arrival: Wheelchair Information source: Patient Notes: ED Medical Screen (Darwin alaniz)) - General Chief Complaint: Shoulder Pain Stated Complaint: FALL - LEFT SHOULDER PAIN Time Seen by Provider: 07/07/20 13:18 Primary Care Provider: JUDI HOWELL PA-C [Primary Care Provider] - Follow up as needed Mode of Arrival: Wheelchair Information source: Patient Notes: 80-year-old female presented to ED for fall at 1 AM in the morning. When daughter found her her arm was extended up the wall and she was laying flat on the ground. Daughter states patient refused to come to the emergency room last night but now her pain is considerably worse so she came to the emergency room. She does have pain with any movement to the left shoulder elbow wrist. It is very painful to get up and down from a chair. She does have tenderness to the front and back of the left side of the ribs. Lungs are clear at this time. We will get x-rays of the left shoulder humerus forearm hand and ribs and she will be seen by another provider. MY NOTES 80-year-old female arrives with chief complaint of left lateral neck left shoulder left arm pain after she fell at 1 AM while walking to the bathroom and may have tripped over an ottoman she cannot recall because it was dark. She had no LOC but she does recall falling with her arm outstretched striking the wall hyperextending her left upper extremity. She now has 8 out of 10 pain as described above. She has full range of motion of her fingers and wrist and elbow but cannot abduct her left upper extremity. She had a history of injury to her right shoulder with bone spurs and this was taken care of by a retired orthopedic. Patient has sensation to her LUE. Spoke to Dr. Vega and he advises following up in his office. TRAVEL OUTSIDE OF THE [place] IN LAST 30 DAYS: No - HPI Occurred: Other - last nite Where: Home Context: Slipped Location of injury/pain: Shoulder - Related data Allergies/Adverse Reactions: fluticasone propionate [From Flonase] Allergy (Severe, Verified 06/15/18 14:54) Anaphylaxis prednisone [Prednisone] Allergy (Severe, Verified 06/15/18 14:54) Generalized edema Home Medications: 81 mg asa, colace, metoprolol, singulair, pepcid Past Medical History - General Information source: Patient - Social History Smoking Status: Current Every Day Smoker Cigarette use (# per day): Yes Chew tobacco use (# tins/day): No Smoking Education Provided: Yes Frequency of alcohol use: Rare Drug Abuse: None Lives with: Family - daughter Family History: Reviewed & Not Pertinent, Hypertension Patient has suicidal ideation: No Patient has homicidal ideation: No - Past Medical History Cardiac Medical History: Reports: Hx Coronary Artery Disease, Hx Hypercholesterolemia, Hx Hypertension - medicated Denies: Hx Heart Attack Pulmonary Medical History: Reports: Hx Pneumonia Denies: Hx Asthma, Hx Bronchitis, Hx COPD, Hx Tuberculosis Neurological Medical History: Reports: Hx Migraine. Denies: Hx Cerebrovascular Accident, Hx Seizures Renal/ Medical History: Denies: Hx Peritoneal Dialysis GI Medical History: Reports: Hx Gastroesophageal Reflux Disease. Denies: Hx Hepatitis, Hx Hiatal Hernia, Hx Ulcer Musculoskeletal Medical History: Reports Hx Arthritis Psychiatric Medical History: Denies: Hx Depression Infectious Medical History: Denies: Hx Hepatitis Past Surgical History: Reports: Hx Abdominal Surgery, Hx Cardiac Catheterization, Hx Cardiac Surgery - Cath, Hx Cholecystectomy, Hx Genitourinary Surgery - bladder/rectum repair, Hx Hysterectomy, Hx Orthopedic Surgery - left foot, right rotator cuff surgery. Denies: Hx Mastectomy, Hx Open Heart Surgery, Hx Pacemaker - Immunizations Hx Diphtheria, Pertussis, Tetanus Vaccination: No Hx Pneumococcal Vaccination: 06/06/11 Review of Systems - Review of Systems Constitutional: See HPI, Weakness EENT: No symptoms reported Cardiovascular: No symptoms reported Respiratory: No symptoms reported Gastrointestinal: No symptoms reported Genitourinary: No symptoms reported Female Genitourinary: No symptoms reported Musculoskeletal: See HPI, Joint pain - LUE, Joint swelling, Muscle pain Skin: No symptoms reported Hematologic/Lymphatic: No symptoms reported Neurological/Psychological: No symptoms reported Physical Exam - Vital signs Vitals: Temp Pulse Resp BP Pulse Ox 98.3 F 58 L 20 162/66 H 93 07/07/20 13:19 07/07/20 13:19 07/07/20 13:19 07/07/20 13:19 07/07/20 13:19 Interpretation: Hypertensive - General General appearance: Appears well, Alert - HEENT Head: Normocephalic, Atraumatic Eyes: Normal Pupils: PERRL - Respiratory Respiratory status: No respiratory distress Chest status: Nontender Breath sounds: Normal Chest palpation: Normal - Cardiovascular Rhythm: Regular Heart sounds: Normal auscultation Murmur: No - Abdominal Inspection: Normal Distension: No distension Bowel sounds: Normal Tenderness: Nontender Organomegaly: No organomegaly - Rectal Hemorrhoids: Other - Defer - Genitourinary Bimanuel exam: Other - Deferred - Back Back: Normal, Nontender - Extremities General upper extremity: Tender - Left upper extremity pain on palpation and unable to abduct with left upper extremity., Normal color, Normal ROM, Normal temperature General lower extremity: Normal inspection, Nontender, Normal color, Normal ROM, Normal temperature, Normal weight bearing. No: Av's sign - Neurological Neuro grossly intact: Yes Cognition: Normal Orientation: AAOx4 [place] Coma Scale Eye Opening: Spontaneous [place] Coma Scale Verbal: Oriented [place] Coma Scale Motor: Obeys Commands [place] Coma Scale Total: 15 Speech: Normal Motor strength normal: LUE, RUE, LLE, RLE Sensory: Normal - Psychological Associated symptoms: Normal affect, Normal mood - Skin Skin Temperature: Warm Skin Moisture: Dry Skin Color: Normal Course - Vital Signs Vital signs: Temp Pulse Resp BP Pulse Ox 98.3 F 58 L 20 162/66 H 93 07/07/20 13:19 07/07/20 13:19 07/07/20 13:19 07/07/20 13:19 07/07/20 13:19 - Diagnostic Test Radiology reviewed: Reports reviewed Discharge - Discharge Clinical Impression: Rotator cuff arthropathy of left shoulder Left upper arm injury Qualifiers: Encounter type: initial encounter Qualified Code(s): S49.92XA - Unspecified injury of left shoulder and upper arm, initial encounter Condition: Good Disposition: HOME, SELF-CARE Additional Instructions: Follow-up with personal doctor and with orthopedics Dr. Vega tomorrow return to ER for true emergencies. Avoid using left upper extremity. Take pain medicines as directed. May take with ibuprofen OTC Referrals: JUDI HOWELL PA-C [PHYSICIAN CONSTRUCTION SCHEDULER] - Follow up as needed ANNMARIE VEGA MD [ASSOCIATE] - Follow up as needed
--- NOTE | 2020-07-07 17:23 | RADIOLOGY REPORT (SQ) ---
EXAM DESCRIPTION: CT HEAD WITHOUT; CT CERVICAL SPINE WITHOUT IMAGES COMPLETED DATE/TIME: 07/07/2020 5:03 pm REASON FOR STUDY: fall PURDY COMPARISON: See below. TECHNIQUE: Axial images acquired through the brain and cervical spine without intravenous contrast. Images reviewed with brain, subdural, lung, soft tissue and bone windows. Reconstructed coronal and sagittal MPR images reviewed. Images stored on PACS. All CT scanners at this facility use dose modulation, iterative reconstruction, and/or weight based d osing when appropriate to reduce radiation dose to as low as reasonably achievable (ALARA). [facility]: Dose Right [facility]: CareDose [facility]: Dose Right [facility]: Teradose 4D [facility]: [employer] RADIATION DOSE: CT Rad equipment meets quality standard of care and radiation dose reduction techniq ues were employed. CTDIvol: 53.2 mGy. DLP: 964 mGy-cm.; CT Rad equipment meets quality standard of ca re and radiation dose reduction techniques were employed. CTDIvol: 16.7 mGy. DLP: 294 mGy-cm.mGy. LIMITATIONS: None. FINDINGS: Brain 2014 comparison. No hemorrhage or mass or shift. No skull fracture. Orbits intact. 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 Cervical spine Minimal degenerative listhesis at C4-5. Otherwise normal alignment. No fracture. Soft tissues norm al, no pneumothorax. Mild symmetric biapical scarring. Disc and facet degenerative disease. Disc disease is most pronounced a C5-6 and C6-7. IMPRESSION: No acute brain abnormality. No acute cervical spine abnormality TECHNICAL DOCUMENTATION: JOB ID: [id number] Quality ID # [id number]: Final reports with documentation of one or more dose reduction techniques (e.g., Au tomated exposure control, adjustment of the mA and/or kV according to patient size, use of iterative reconstruction technique) 2010 [employer]- All Rights Reserved Reading location - IP/workstation name: [email or web address]
--- NOTE | 2020-07-07 17:23 | RADIOLOGY REPORT (SQ) ---
EXAM DESCRIPTION: CT HEAD WITHOUT; CT CERVICAL SPINE WITHOUT IMAGES COMPLETED DATE/TIME: 07/07/2020 5:03 pm REASON FOR STUDY: fall PURDY COMPARISON: See below. TECHNIQUE: Axial images acquired through the brain and cervical spine without intravenous contrast. Images reviewed with brain, subdural, lung, soft tissue and bone windows. Reconstructed coronal and sagittal MPR images reviewed. Images stored on PACS. All CT scanners at this facility use dose modulation, iterative reconstruction, and/or weight based d osing when appropriate to reduce radiation dose to as low as reasonably achievable (ALARA). [facility]: Dose Right [facility]: CareDose [facility]: Dose Right [facility]: Teradose 4D [facility]: [employer] RADIATION DOSE: CT Rad equipment meets quality standard of care and radiation dose reduction techniq ues were employed. CTDIvol: 53.2 mGy. DLP: 964 mGy-cm.; CT Rad equipment meets quality standard of ca re and radiation dose reduction techniques were employed. CTDIvol: 16.7 mGy. DLP: 294 mGy-cm.mGy. LIMITATIONS: None. FINDINGS: Brain 2014 comparison. No hemorrhage or mass or shift. No skull fracture. Orbits intact. 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 Cervical spine Minimal degenerative listhesis at C4-5. Otherwise normal alignment. No fracture. Soft tissues norm al, no pneumothorax. Mild symmetric biapical scarring. Disc and facet degenerative disease. Disc disease is most pronounced a C5-6 and C6-7. IMPRESSION: No acute brain abnormality. No acute cervical spine abnormality TECHNICAL DOCUMENTATION: JOB ID: [id number] Quality ID # [id number]: Final reports with documentation of one or more dose reduction techniques (e.g., Au tomated exposure control, adjustment of the mA and/or kV according to patient size, use of iterative reconstruction technique) 2010 [employer]- All Rights Reserved Reading location - IP/workstation name: [email or web address]
[2020-07-07] MEDS ORDERED: HYDROCODONE/ACETAMINOPHEN 5-325 MG (6 TAB/ER DISP) PO PRN (18:02)
[2020-07-07] MEDS ORDERED: ONDANSETRON ODT 4 MG TAB (6 TAB/ER DISP) PO PRN (18:02)
[2020-07-07 18:21] VITALS: BP 170/58
== END 2020-07-07 18:22 | disposition home or self-care (01) ==
LOC: ER 12:32
DX: S49.92XA Unspecified injury of left shoulder and upper arm, initial encounter (principal); M54.2 Cervicalgia; W01.0XXA Fall on same level from slipping, tripping and stumbling without subsequent striking against object, initial encounter; Y93.89 Activity, other specified; Y92.009 Unspecified place in unspecified non-institutional (private) residence as the place of occurrence of the external cause; M19.012 Primary osteoarthritis, left shoulder; R53.1 Weakness; F17.210 Nicotine dependence, cigarettes, uncomplicated; I25.10 Atherosclerotic heart disease of native coronary artery without angina pectoris; I10 Essential (primary) hypertension; K21.9 Gastro-esophageal reflux disease without esophagitis; Z98.890 Other specified postprocedural states; Z79.82 Long term (current) use of aspirin; Z79.899 Other long term (current) drug therapy; Z88.8 Allergy status to other drugs, medicaments and biological substances
CPT/HCPCS: 99285; 96372; 73090; 73130; 73060; 71101; 73030; 70450; 72125; J2270; J2405; A9270 ×3